=== PATIENT | female | born 1965 | race Caucasian/White ===

== ENCOUNTER 2018-05-28 15:44 | Emergency (ER) | payer OTHER ==
--- NOTE | 2018-05-28 16:33 | EDM.PDOC ---
Scribed by Marian Joya 05/28/18 [id number] for Mark Anthony Johnson PA ED HPI GENERAL MEDICAL PROBLEM - General Chief Complaint: ENT Problem Stated Complaint: EYE DRAINING. PASSED OUT [phone] Time Seen by Provider: 05/28/18 16:17 Source of Information: Reports: Patient, RN, RN Notes Reviewed History Limitations: Reports: No Limitations - History of Present Illness INITIAL COMMENTS - FREE TEXT/NARRATIVE: Patient is a 53-year-old female stating her right eye has erythema and drainage. Area in right nare ? MRSA. Two weeks ago she used cocaine and meth and over the weekend she used marijuana. Onset: Gradual Duration: Getting Worse Quality: Reports: Ache Severity: Mild Improves with: Reports: None Worsens with: Reports: None Associated Symptoms: Reports: No Other Symptoms ED ROS ENT - Review of Systems Review Of Systems: ROS reveals no pertinent complaints other than HPI. ED EXAM, ENT - Physical Exam Exam: See Below Exam Limited By: No Limitations General Appearance: Alert, WD/WN, No Apparent Distress Eye Exam: Bilateral Eye: Other (right eye erythema and drainage) Ears: Normal External Exam, Normal Canal, Hearing Grossly Normal, Normal TMs Nose: Other (nose abscess that has drained and has erythema) Mouth/Throat: Normal Inspection, Normal Gums, Normal Lips, Normal Oropharynx, Normal Teeth Head: Atraumatic, Normocephalic Neck: Normal Inspection, Supple, Non-Tender, Full Range of Motion Respiratory/Chest: No Respiratory Distress, Lungs Clear, Normal Breath Sounds, No Accessory Muscle Use, Chest Non-Tender Cardiovascular: Normal Peripheral Pulses, Regular Rate, Rhythm, No Edema, No Gallop, No JVD, No Murmur, No Rub GI/Abdominal: Normal Bowel Sounds, Soft, Non-Tender, No Organomegaly, No Distention, No Abnormal Bruit, No Mass (Female) Exam: Deferred Rectal (Female) Exam: Deferred Back: Normal Inspection, Full Range of Motion Extremities: Normal Inspection, Normal Range of Motion, Non-Tender, No Pedal Edema, Normal Capillary Refill Neurological: Alert, Oriented, CN II-XII Intact, Normal Cognition, Normal Gait, Normal Reflexes, No Motor/Sensory Deficits Psychiatric: Normal Affect, Normal Mood Skin: Warm, Dry, Intact, Normal Color, No Rash Lymphatic: Other (left anterior cervical lymphadenopathy) Departure - Departure Time of Disposition: 16:30 Disposition: Home, Self-Care 01 Condition: Fair Clinical Impression: Bacterial conjunctivitis of right eye, Abscess - Discharge Information *PRESCRIPTION DRUG MONITORING PROGRAM REVIEWED*: Not Applicable *COPY OF PRESCRIPTION DRUG MONITORING REPORT IN PATIENT MAGGIE: Not Applicable Instructions: Bacterial Conjunctivitis, Skin Abscess, [id number] Forms: ED Department Discharge Care Plan Goals: The patient was advised of the examination results during the visit. The patient was discharged with a script for Polytrim to put 1 drop in each eye 4 times per day for 10 days and Clindamycin (300 mg) to take 1 by mouth 4 times per day for 10 days. If the patient has any additional symptoms or concerns, the patient should follow-up with her primary care facility or return to the emergency department. I have read and agree with the documentation that has been completed regarding this visit. By signing this record, I attest that the documentation was completed in my physical presence and is an accurate record of the encounter.
== END 2018-05-28 16:39 | disposition home or self-care (01) ==
LOC: EDSEX → DL.ED 15:44
DX: H10.9 Unspecified conjunctivitis (principal); B96.89 Other specified bacterial agents as the cause of diseases classified elsewhere; J34.0 Abscess, furuncle and carbuncle of nose; F17.210 Nicotine dependence, cigarettes, uncomplicated
CPT/HCPCS: 99282

== ENCOUNTER 2019-05-24 03:14 | Emergency (ER) | payer OTHER ==
[2019-05-24] MEDS ORDERED: Clindamycin HCl 150 MG Cap PO ONE (03:39)
[2019-05-24] MEDS ORDERED: traMADol 50 MG Tab ONE (03:44)
--- NOTE | 2019-05-24 03:44 | EDM.PDOC ---
ED HPI GENERAL MEDICAL PROBLEM - General Chief Complaint: Lower Extremity Injury/Pain Stated Complaint: INGROWN TOENAIL Time Seen by Provider: 05/24/19 03:39 Source of Information: Reports: Patient History Limitations: Reports: No Limitations - History of Present Illness INITIAL COMMENTS - FREE TEXT/NARRATIVE: gives h/o recurrent ingrown toe nails. Right Toe-Hailux Pain Score (Numeric/FACES): 10 - Related Data Allergies Allergy/AdvReac Type Severity Reaction Status Date / Time No Known Allergies Allergy Verified 05/24/19 03:34 Home Meds: Home Meds . [No Known Home Meds] 05/28/18 [History] Past Medical History - Past Health History Medical/Surgical History: Denies Medical/Surgical History Cardiovascular History: Reports: Hypertension Other Cardiovascular History: States she has been on Lisinopril 10mg in the past but is out and has not gotten a new PCP since moving here to get refills. Musculoskeletal History: Reports: Other (See Below) Other Musculoskeletal History: fx to right foot - Past Surgical History Female Surgical History: Reports: Hysterectomy Review of Systems - Review of Systems Review Of Systems: ROS reveals no pertinent complaints other than HPI. ED EXAM, GENERAL - Physical Exam Exam: See Below Exam Limited By: No Limitations General Appearance: Alert, WD/WN, Mild Distress, Other (discomfort) Ears: Hearing Grossly Normal Throat/Mouth: Normal Voice, No Airway Compromise Head: Atraumatic Neck: Non-Tender, Full Range of Motion Respiratory/Chest: No Respiratory Distress Cardiovascular: Regular Rate, Rhythm GI/Abdominal: Soft, Non-Tender Extremities: Other (bilateral ingrown big toe nails with local infection without lymphangitis, gait limited to discomfort) Neurological: Alert, Oriented, Normal Cognition, No Motor/Sensory Deficits Psychiatric: Tearful Skin Exam: Warm, Dry, Normal Color Lymphatic: No Adenopathy Course - Vital Signs Last Recorded V/S: Last Vital Signs Temp 36.3 C 05/24/19 03:27 Pulse 78 05/24/19 03:27 Resp 20 05/24/19 03:27 BP 155/84 H 05/24/19 03:27 Pulse Ox 98 05/24/19 03:27 - Orders/Labs/Meds Orders: Active Orders 24 hr Category Date Time Status Clindamycin HCl [Cleocin] Med 05/24/19 03:39 Once 150 mg PO ONETIME ONE Departure - Departure Time of Disposition: 03:42 Disposition: Home, Self-Care 01 Condition: Good Clinical Impression: Ingrown toenail of both feet, Ingrowing nail with infection - Discharge Information Instructions: Ingrown Toenail Additional Instructions: 1) see COTTAGE ATTENDANT SUNDAY 2) try tylenol or motrin for discomfort rx given; clindamycin 150mg qid x 40 - My Orders Last 24 Hours: My Active Orders 05/24/19 03:39 Clindamycin HCl [Cleocin] 150 mg PO ONETIME ONE - Assessment/Plan Last 24 Hours: My Active Orders 05/24/19 03:39 Clindamycin HCl [Cleocin] 150 mg PO ONETIME ONE
== END 2019-05-24 04:02 | disposition home or self-care (01) ==
LOC: DL.ED 03:14
DX: L60.0 Ingrowing nail (principal); L08.9 Local infection of the skin and subcutaneous tissue, unspecified
CPT/HCPCS: 99283; A9270

== ENCOUNTER 2020-04-15 00:13 | Emergency (ER) | payer MEDICAID, OTHER ==
[2020-04-15 01:35] LABS: ANION GAP 11.6 mEq/L (7-13)
--- NOTE | 2020-04-15 01:42 | EDM.PDOC ---
ED HPI GENERAL MEDICAL PROBLEM - General Chief Complaint: Lower Extremity Injury/Pain Stated Complaint: FOOT IS SWOLLEN Time Seen by Provider: 04/15/20 00:45 Source of Information: Reports: Patient, RN History Limitations: Reports: No Limitations - History of Present Illness INITIAL COMMENTS - FREE TEXT/NARRATIVE: c/o pain left foot with swelling pain , recent bug bites to lower extremity after cleaning very andrew area. Similar bites to upper legs. Initial BP elevated, Admits supposed to be on Lisinopril, has not taken since November. Has not gotten to clinic to refill. No fever or chills. Left Lower Feet Pain Score (Numeric/FACES): 10 - Related Data Allergies Allergy/AdvReac Type Severity Reaction Status Date / Time No Known Allergies Allergy Verified 04/15/20 00:39 Home Meds: Home Meds . [No Known Home Meds] 05/28/18 [History] Past Medical History - Past Health History Medical/Surgical History: Denies Medical/Surgical History Cardiovascular History: Reports: Hypertension Other Cardiovascular History: States she has been on Lisinopril 10mg in the past but is out and has not gotten a new PCP since moving here to get refills. ( No Dr since 10/20) Musculoskeletal History: Reports: Other (See Below) Other Musculoskeletal History: fx to right foot Psychiatric History: Reports: Anxiety - Past Surgical History Female Surgical History: Reports: Hysterectomy Social & Family History - Family History Family Medical History: Noncontributory - Tobacco Use Smoking Status *Q: Unknown Ever Smoked - Recreational Drug Use Recreational Drug Use Frequency: Patient Refuses To Answer Review of Systems - Review of Systems Review Of Systems: Comprehensive ROS is negative, except as noted in HPI. ED EXAM, GENERAL - Physical Exam Exam: See Below Exam Limited By: No Limitations General Appearance: Alert, Mild Distress (restless), Obese, Other (unkempt) Eye Exam: Bilateral Eye: EOMI, PERRL (4 rapid eye movments) Ears: Normal External Exam, Normal TMs Nose: Normal Inspection Throat/Mouth: Normal Inspection Head: Atraumatic, Normocephalic Neck: Normal Inspection, Full Range of Motion Respiratory/Chest: No Respiratory Distress, Normal Breath Sounds Cardiovascular: Normal Peripheral Pulses, Regular Rate, Rhythm Extremities: Normal Range of Motion, Other (mild redness left fore foot and lower leg. generalized tenderness. No sign of injury, multiple picking istes ) Neurological: Alert, Oriented, Normal Cognition Psychiatric: Normal Affect Skin Exam: Warm, Dry, Wound/Incision Course - Vital Signs Last Recorded V/S: Last Vital Signs Temp 98.1 F 04/15/20 00:42 Pulse 94 04/15/20 00:42 Resp 18 04/15/20 00:42 BP 164/84 H 04/15/20 01:18 Pulse Ox 98 04/15/20 00:42 - Orders/Labs/Meds Orders: Active Orders 24 hr Category Date Time Status CULTURE BLOOD [BC] Stat Lab 04/15/20 00:52 Ordered Labs: Laboratory Tests 04/15/20 04/15/20 04/15/20 Range/Units 01:11 01:11 01:11 WBC 9.3 (5.0-10.0) 10^3/uL RBC 4.63 (4.2-5.4) 10^6/uL Hgb 14.2 (12.0-16.0) g/dL Hct 42.7 (37.0-47.0) % MCV 92.2 (80-100) fL MCH 30.7 (27.0-34.0) pg MCHC 33.3 (33.0-35.0) g/dL Plt Count 220 (150-450) 10^3/uL Neut % (Auto) 62.1 (42.2-75.2) % Lymph % (Auto) 22.3 (20.5-50.1) % Tucker % (Auto) 12.1 H (2-8) % Eos % (Auto) 3.1 H (1.0-3.0) % Baso % (Auto) 0.4 (0.0-1.0) % Sodium 144 (136-145) mmol/L Potassium 3.6 (3.5-5.1) mmol/L Chloride 107 (98-107) mmol/L Carbon Dioxide 29 (21-32) mmol/L Anion Gap 11.6 (7-13) mEq/L BUN 23 H (7-18) mg/dL Creatinine 1.14 H (0.55-1.02) mg/dL Est Cr Clr Drug Dosing 49.28 mL/min Estimated GFR (MDRD) 50 BUN/Creatinine Ratio 20.2 (No establ ref range) Glucose 100 H (74-99) mg/dL Lactic Acid 0.9 (0.4-2.0) mmol/L Calcium 8.8 (8.5-10.1) mg/dL Total Bilirubin 0.4 (0.2-1.0) mg/dL AST 18 (15-37) U/L ALT 24 (14-59) U/L Alkaline Phosphatase 158 H (46-116) U/L Total Protein 7.8 (6.4-8.2) g/dL Albumin 3.7 (3.4-5.0) g/dL Globulin 4.1 Albumin/Globulin Ratio 0.9 Urine Color (YELLOW) Urine Appearance (CLEAR) Urine pH (5.0-9.0) Ur Specific [place] (1.005-1.030) Urine Protein (NEGATIVE) Urine Glucose (UA) (NEGATIVE) Urine Ketones (NEGATIVE) Urine Occult Blood (NEGATIVE) Urine Nitrite (NEGATIVE) Urine Bilirubin (NEGATIVE) Urine Urobilinogen (0.2-1.0) mg/dL Ur Leukocyte Esterase (NEGATIVE) Urine Opiates Screen (NEGATIVE) Ur Oxycodone Screen (NEGATIVE) Urine Methadone Screen (NEGATIVE) Ur Barbiturates Screen (NEGATIVE) U Tricyclic Antidepress (NEGATIVE) Ur Phencyclidine Scrn (NEGATIVE) Ur Amphetamine Screen (NEGATIVE) U Methamphetamines Scrn (NEGATIVE) Urine MDMA Screen (NEGATIVE) U Benzodiazepines Scrn (NEGATIVE) Urine Cocaine Screen (NEGATIVE) U Marijuana (THC) Screen (NEGATIVE) 04/15/20 04/15/20 Range/Units 01:44 01:44 WBC (5.0-10.0) 10^3/uL RBC (4.2-5.4) 10^6/uL Hgb (12.0-16.0) g/dL Hct (37.0-47.0) % MCV (80-100) fL MCH (27.0-34.0) pg MCHC (33.0-35.0) g/dL Plt Count (150-450) 10^3/uL Neut % (Auto) (42.2-75.2) % Lymph % (Auto) (20.5-50.1) % Tucker % (Auto) (2-8) % Eos % (Auto) (1.0-3.0) % Baso % (Auto) (0.0-1.0) % Sodium (136-145) mmol/L Potassium (3.5-5.1) mmol/L Chloride (98-107) mmol/L Carbon Dioxide (21-32) mmol/L Anion Gap (7-13) mEq/L BUN (7-18) mg/dL Creatinine (0.55-1.02) mg/dL Est Cr Clr Drug Dosing mL/min Estimated GFR (MDRD) BUN/Creatinine Ratio (No establ ref range) Glucose (74-99) mg/dL Lactic Acid (0.4-2.0) mmol/L Calcium (8.5-10.1) mg/dL Total Bilirubin (0.2-1.0) mg/dL AST (15-37) U/L ALT (14-59) U/L Alkaline Phosphatase (46-116) U/L Total Protein (6.4-8.2) g/dL Albumin (3.4-5.0) g/dL Globulin Albumin/Globulin Ratio Urine Color Yellow (YELLOW) Urine Appearance Slightly cloudy (CLEAR) Urine pH 5.5 (5.0-9.0) Ur Specific [place] >= 1.030 (1.005-1.030) Urine Protein Negative (NEGATIVE) Urine Glucose (UA) Negative (NEGATIVE) Urine Ketones Negative (NEGATIVE) Urine Occult Blood Negative (NEGATIVE) Urine Nitrite Negative (NEGATIVE) Urine Bilirubin Negative (NEGATIVE) Urine Urobilinogen 0.2 (0.2-1.0) mg/dL Ur Leukocyte Esterase Negative (NEGATIVE) Urine Opiates Screen Negative (NEGATIVE) Ur Oxycodone Screen Negative (NEGATIVE) Urine Methadone Screen Negative (NEGATIVE) Ur Barbiturates Screen Negative (NEGATIVE) U Tricyclic Antidepress Negative (NEGATIVE) Ur Phencyclidine Scrn Negative (NEGATIVE) Ur Amphetamine Screen Positive H (NEGATIVE) U Methamphetamines Scrn Positive H (NEGATIVE) Urine MDMA Screen Negative (NEGATIVE) U Benzodiazepines Scrn Negative (NEGATIVE) Urine Cocaine Screen Negative (NEGATIVE) U Marijuana (THC) Screen Positive H (NEGATIVE) Meds: Medications Discontinued Medications Generic Name Dose Route Start Last Admin Trade Name Freq PRN Reason Stop Dose Admin Acetaminophen 650 mg 04/15/20 02:00 04/15/20 02:12 Tylenol PO 04/15/20 02:01 650 mg NOW ONE Administration Doxycycline Monohydrate 100 mg 04/15/20 02:00 04/15/20 02:12 Doxycycline Monohydrate PO 04/15/20 02:01 100 mg ONETIME ONE Administration Departure - Departure Time of Disposition: 02:01 Disposition: Home, Self-Care 01 Condition: Good Clinical Impression: Positive urine drug screen Cellulitis Qualifiers: Site of cellulitis: extremity Site of cellulitis of extremity: lower extremity Laterality: left Qualified Code(s): L03.116 - Cellulitis of left lower limb - Discharge Information *PRESCRIPTION DRUG MONITORING PROGRAM REVIEWED*: No *COPY OF PRESCRIPTION DRUG MONITORING REPORT IN PATIENT MAGGIE: No Instructions: Cellulitis, Adult, [id number] Forms: ED Department Discharge Additional Instructions: [id number] one twice daily for 10 days tylenol 650mg every 4 hours a needed for discomfort clinic follow up on sunday if not improving elevate extremity warm moist compress 15minutes three times daily Sepsis Event Note (ED) - Evaluation Sepsis Screening Result: No Definite Risk - Focused Exam Vital Signs: Vital Signs Temp Pulse Resp BP Pulse Ox 04/15/20 01:18 164/84 H 04/15/20 00:42 98.1 F 94 18 127/113 H 98 - My Orders Last 24 Hours: My Active Orders 04/15/20 00:52 CULTURE BLOOD [BC] Stat - Assessment/Plan Last 24 Hours: My Active Orders 04/15/20 00:52 CULTURE BLOOD [BC] Stat
[2020-04-15] MEDS ORDERED: Acetaminophen 325 MG Tab PO ONE (02:00)
[2020-04-15] MEDS ORDERED: Doxycycline Monohydrate 100 MG Cap PO ONE (02:00)
== END 2020-04-15 02:18 | disposition home or self-care (01) ==
LOC: DL.ED 00:13
DX: L03.116 Cellulitis of left lower limb (principal); R82.5 Elevated urine levels of drugs, medicaments and biological substances; I10 Essential (primary) hypertension; E66.9 Obesity, unspecified; Z68.32 Body mass index [BMI] 32.0-32.9, adult
CPT/HCPCS: 36415; 80053; 80305; 81003; 83605; 85025; 87040; 99283; A9270

== ENCOUNTER 2020-11-25 07:36 | Emergency (ER) | payer SELFPAY ==
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
== END 2020-11-25 08:42 | disposition home or self-care (01) ==
LOC: DL.ED 07:36
DX: M54.2 Cervicalgia (principal); I10 Essential (primary) hypertension; Z72.0 Tobacco use
CPT/HCPCS: 99282; 99283

== ENCOUNTER 2021-06-21 11:24 | Emergency (ER) | payer SELFPAY ==
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
== END 2021-06-21 12:45 | disposition home or self-care (01) ==
LOC: DL.ED 11:24
DX: S00.411A Abrasion of right ear, initial encounter (principal); I10 Essential (primary) hypertension; Z72.0 Tobacco use; X58.XXXA Exposure to other specified factors, initial encounter
CPT/HCPCS: 99282

== ENCOUNTER 2022-04-30 13:06 | Emergency (ER) | payer SELFPAY ==
[2022-04-30] MEDS ORDERED: Gentamicin 0.3% Ophth Soln 5 ML Bottle ONE (13:26)
== END 2022-04-30 13:38 | disposition home or self-care (01) ==
LOC: DL.ED 13:06
DX: H10.023 Other mucopurulent conjunctivitis, bilateral (principal); Z90.710 Acquired absence of both cervix and uterus
CPT/HCPCS: 99282; A9270

== ENCOUNTER 2022-07-08 17:05 | Emergency (ER) | payer SELFPAY ==
[2022-07-08] MEDS ORDERED: Lisinopril 10 MG Tab PO ONE ×2 (17:50→18:46)
[2022-07-08] MEDS ORDERED: Ibuprofen 800 MG Tab PO ONE (17:50)
[2022-07-08] MEDS ORDERED: Acetaminophen 325 MG Tab PO ONE (17:50)
== END 2022-07-08 18:58 | disposition home or self-care (01) ==
LOC: DL.ED 17:05
DX: F07.81 Postconcussional syndrome (principal); G44.329 Chronic post-traumatic headache, not intractable; I10 Essential (primary) hypertension; E66.9 Obesity, unspecified
CPT/HCPCS: 70450; 99284; A9270

== ENCOUNTER 2022-09-07 06:58 | Emergency (ER) | payer SELFPAY ==
[2022-09-07] MEDS ORDERED: Sodium Chloride 0.9% 10 ML Syringe FLUSH PRN (08:06)
[2022-09-07] MEDS ORDERED: methylPREDNISolone Sodium Succinate 125 MG/2 ML SDV IVPUSH ONE (08:07)
[2022-09-07] MEDS ORDERED: Sodium Chloride 0.9% 1,000 ML IV ONE (08:07)
[2022-09-07] MEDS ORDERED: diphenhydrAMINE 50 MG/ML SDV IVPUSH ONE (08:07)
[2022-09-07] MEDS ORDERED: Famotidine 20 MG/2 ML SDV IVPUSH ONE (08:07)
[2022-09-07 08:35] LABS: ANION GAP 15.6 mEq/L (7-13); CHLORIDE,CL 105 mmol/L (98-107); SODIUM,NA 141 mmol/L (136-145)
[2022-09-07 08:40] LABS: ESTIMATED GFR 79 mL/min (>=60)
== END 2022-09-07 09:14 | disposition home or self-care (01) ==
LOC: DL.ED 06:58
DX: L23.5 Allergic contact dermatitis due to other chemical products (principal); L98.8 Other specified disorders of the skin and subcutaneous tissue; I10 Essential (primary) hypertension; Z79.899 Other long term (current) drug therapy
CPT/HCPCS: 36415; 80053; 82550; 83605; 84145; 85025; 86140; 87040; 96361; 96374; 96375; 99283-25; J2930; J3490; J7030

== ENCOUNTER 2023-01-19 00:41 | Emergency (ER) | payer BC ==
[2023-01-19] MEDS ORDERED: Sodium Chloride 0.9% 10 ML Syringe FLUSH PRN (01:02)
[2023-01-19] MEDS ORDERED: Piperacillin/Tazobactam 3.375 GM in Sodium Chloride 0.9% 100 ML IV ONE (01:03)
[2023-01-19 01:33] LABS: ANION GAP 10.3 mEq/L (7-13)
== END 2023-01-19 01:50 | disposition home or self-care (01) ==
LOC: DL.ED 00:41
DX: L03.116 Cellulitis of left lower limb (principal); I10 Essential (primary) hypertension; J44.9 Chronic obstructive pulmonary disease, unspecified; Z79.899 Other long term (current) drug therapy; Z86.16 Personal history of COVID-19
CPT/HCPCS: 36415; 80053; 83605; 85025; 96365; 99283; 99283-25; J2543; J3490

== ENCOUNTER 2023-04-09 03:46 | Emergency (ER) | payer BC | END 2023-04-09 04:46 | disposition left against medical advice (07) | LOC: DL.ED 03:46 | DX: Z53.21 Procedure and treatment not carried out due to patient leaving prior to being seen by health care provider (principal) ==

== ENCOUNTER 2023-06-04 19:35 | Emergency (ER) | payer BC ==
[2023-06-04] MEDS ORDERED: Acetaminophen 500 MG Tab PO ONE (22:53)
[2023-06-04 23:09] LABS: BASOPHILS PERCENT AUTO 0.3 % (0.0-1.0); EOSINOPHILS PERCENT AUTO 1.1 % (1.0-3.0); HEMATOCRIT 42.5 % (37.0-47.0); HEMOGLOBIN 13.7 g/dL (12.0-16.0); LYMPHOCYTES PERCENT AUTO 10.1 % (20.5-50.1); MEAN CORPUSCULAR HEMOGLOBIN 28.3 pg (27.0-34.0); MEAN CORPUSCULAR HGB CONC 32.2 g/dL (33.0-35.0); MEAN CORPUSCULAR VOLUME 87.8 fL (80-100); MONOCYTES PERCENT AUTO 22.2 % (2-8); NEUTROPHILS PERCENT AUTO 66.3 % (42.2-75.2); PLATELET COUNT,PLT 197 10^3/uL (150-450); RED BLOOD CELL COUNT 4.84 10^6/uL (4.2-5.4); WHITE BLOOD CELL COUNT,WBC 6.5 10^3/uL (5.0-10.0)
[2023-06-04 23:38] LABS: A/G RATIO 0.9; ALBUMIN 3.5 g/dL (3.4-5.0); ANION GAP 11.6 mEq/L (7-13); BILIRUBIN TOTAL 0.3 mg/dL (0.2-1.0); CALCIUM 9.1 mg/dL (8.5-10.1); CREATININE 0.92 mg/dL (0.55-1.02); EST CRCL DRUG DOSING (CG) 58.96 mL/min; POTASSIUM,K 3.6 mmol/L (3.5-5.1); PROTEIN TOTAL,TP 7.6 g/dL (6.4-8.2)
[2023-06-04 23:39] LABS: LACTIC ACID 0.7 mmol/L (0.4-2.0)
== END 2023-06-04 23:53 | disposition home or self-care (01) ==
LOC: DL.ED 19:35
DX: Z77.098 Contact with and (suspected) exposure to other hazardous, chiefly nonmedicinal, chemicals (principal); F17.210 Nicotine dependence, cigarettes, uncomplicated; J44.9 Chronic obstructive pulmonary disease, unspecified; I10 Essential (primary) hypertension; E66.9 Obesity, unspecified; Z86.16 Personal history of COVID-19; Z79.899 Other long term (current) drug therapy; Z68.31 Body mass index [BMI] 31.0-31.9, adult
CPT/HCPCS: 36415; 71046; 80053; 83605; 85025; 99283; 99284; A9270